=== PATIENT | male | born 1960 | race Caucasian/White ===

== ENCOUNTER → 2019-03-08 07:28 | Outpatient (CLI) | payer OTHER, SELFPAY ==
--- NOTE | 2019-03-08 | DI.US.S_ITS ---
PROCEDURE: US CAROTID DOPPLER BI INDICATIONS: PERIPHERAL VASCULAR DISEASE, CEREBRAL INFARCTION TECHNIQUE: Color and pulse Doppler interrogation was performed of both carotid systems, with image documentation and velocity measurements. COMPARISON: [facility], , CAROTID ARTERY DOPPLER BILAT, 09/19/2014, 8:10. FINDINGS: Stenosis calculations are based on SRU (Society of Radiologists in Ultrasound) criteria. Right side: Brachial blood pressure: 200/90 mm Hg. Common carotid artery peak systolic velocity: 49 cm/sec. Internal carotid artery peak systolic velocity 206 cm/sec. Internal carotid artery end diastolic velocity: 43 cm/sec. External carotid artery peak systolic velocity: 262 cm/sec. ICA/CCA peak systolic ratio: 4.2. Brady scale imaging description: Extensive plaque at the bifurcation Percent internal carotid artery stenosis: 50-69%. Vertebral artery: Flow direction is antegrade. Left side: Brachial blood pressure: 180/80 mm Hg. Common carotid artery peak systolic velocity: 62 cm/sec. Internal carotid artery peak systolic velocity: 117 cm/sec. Internal carotid artery end diastolic velocity: 38 cm/sec. External carotid artery peak systolic velocity: 102 cm/sec. ICA/CCA peak systolic ratio: 1.9. Brady scale imaging description: Diffuse plaque in the bifurcation Percent internal carotid artery stenosis: Less than 50%. Vertebral artery: Flow direction is antegrade. IMPRESSION: Right 50-69% ICA stenosis. This has progressed since prior study dated 09/19/14. Less than 50% left ICA stenosis. Hypertension at the time of examination. Recommend clinical followup and management. Dictated by: Gaudencio Mcmullen M.D. on 03/08/2019 at 11:28 Approved by: Gaudencio Mcmullen M.D. on 03/08/2019 at 11:31
--- NOTE | 2019-03-08 | DI.US.S_ITS ---
PROCEDURE: US ARTERIAL DUPLEX LE BI INDICATIONS: PERIPHERAL VASCULAR DISEASE TECHNIQUE: Color and pulse Doppler interrogation was performed of both lower extremity arterial systems, with image documentation. COMPARISON: None. FINDINGS: Right lower extremity: Common femoral artery: 192 cm/sec, with monophasic flow. Deep femoral artery: 454 cm/sec, with monophasic flow. Proximal superficial femoral artery: 310 cm/sec, with biphasic flow. Mid superficial femoral artery: 226 cm/sec, with biphasic flow. Distal superficial femoral artery: 159 cm/sec, with monophasic flow. Popliteal artery: 41 cm/sec, with monophasic flow. Posterior tibial artery: 29 cm/sec, with monophasic flow. Anterior tibial artery/dorsalis pedis: 46 cm/sec, with monophasic flow. Brady-scale imaging description: Heavy scattered plaque. Left lower extremity: Common femoral artery: 232 cm/sec, with triphasic flow. Deep femoral artery: 407 cm/sec, with triphasic flow. Proximal superficial femoral artery: 123 cm/sec, with biphasic flow. Mid superficial femoral artery: 181 cm/sec, with biphasic flow. Distal superficial femoral artery: 73 cm/sec, with biphasic flow. Popliteal artery: 64 cm/sec, with biphasic flow. Posterior tibial artery: 40 cm/sec, with biphasic flow. Anterior tibial artery/dorsalis pedis: 48 cm/sec, with biphasic flow. Brady-scale imaging description: Heavy scattered plaque. IMPRESSION: 1. Elevated velocities within the common femoral arteries, left greater than right likely related to aortoiliac disease. 2. 20-49% stenosis of the proximal right superficial femoral artery. 3. Significant decrease in flow visualized within the distal right superficial femoral artery where a high-grade stenosis and/or occlusion cannot entirely be excluded. If indicated, CT or MR angiography could be performed for further evaluation. 4. Roughly 50% stenosis involving the left mid superficial femoral artery. Dictated by: Howard ROBERTO Interpreted: Lamine Enrique MD on 03/08/2019 at 10:38 Approved by: Lamine Enrique M.D. on 03/08/2019 at 14:33
== END ==
PROVIDERS: Family Provider Family Medicine; PCP Family Medicine; Visit Provider Family Medicine
DX: I73.9 Peripheral vascular disease, unspecified (principal); I63.9 Cerebral infarction, unspecified
CPT/HCPCS: 93880; 93925

== ENCOUNTER → 2019-04-15 14:46 | Outpatient (CLI) | payer OTHER, SELFPAY ==
--- NOTE | 2019-04-15 | DI.ECHO.S_ITS ---
[facility] +---------+ : : [address] [address] : : : : [id number] : : : : Phone: [phone]+ Echocardiogram Report + + :Name: CARMEL SETH Study Date: 04/15/2019 Height: 74 in : :[facility] Weight: 204 lb : : Gender: Male BSA: 2.2 m2 : :: 1960 Age: 58 yrs BP: 190/80 mmHg: :Reason For Study: Murmur : : Performed By: Angella Carson : :Referring: ANIL IVY : + + Interpretation Summary Left ventricular wall thickness is mildly increased. The left ventricular ejection fraction is normal. The right ventricle grossly appears normal in size with probable normal systolic function. The right ventricular systolic pressure is estimated to be at least 36 mmHg based on an estimated right atrial pressure of 3 mm Hg. The aortic valve is moderately calcified. There is mild to moderate aortic stenosis. The severity ratio is 0.44, max velocity of 2.9 m/s and mean gradient of 14mmHg. Previously te severity ratio was 0.6 with peak velocity of 2.67 m/s and mean gradient of 15 mmHg. The ascending aorta is at the upper limits of normal in size. -Overall these findings are similar to the prior echocardiogram on 09/14/2010 with slight progression of the aortic stenosis. Procedure: A two-dimensional transthoracic echocardiogram with color flow and Doppler was performed. The study quality was technically adequate. Comparison is made with the echocardiogram of 09-14-10. The patient was in normal sinus rhythm during the exam. Left Ventricle: The left ventricle is normal in size. Left ventricular wall thickness is mildly increased. The ejection fraction is estimated to be 60- 65%. The left ventricular ejection fraction is normal. There are no focal wall motion abnormalities. Diastolic parameters suggest a relaxation abnormality of the left ventricle, consistent with probable normal filling pressures. Right Ventricle: The right ventricle grossly appears normal in size with probable normal systolic function. Atria: The left atrium is moderately dilated. Right atrial size is normal. There is no Doppler evidence for an interatrial shunt. Mitral Valve: The mitral valve leaflets appear mildly thickened, but open well. There is moderate mitral annular calcification. There is trace mitral regurgitation. Aortic Valve: The aortic valve is trileaflet. The aortic valve is moderately calcified. The calculated aortic valve area is 1.5 cm2. The aortic valve area is 1.6 centimeters squared by planimetry. The peak aortic velocity is 2.9 m/sec. The peak aortic velocity on the previous exam was 2.7 m/sec. The aortic valve mean gradient is 11 mmHg. Severity ratio is 0.44.Previously te severity ratio was 0.6 with INDIGO of 2.1 cm2, peak velocity of 2.67 m/s and mean gradient of 15 mmHg. There is mild to moderate aortic stenosis. There is mild aortic regurgitation. Tricuspid Valve: The tricuspid valve is normal in structure and function. There is a trace or physiologic amount of tricuspid regurgitation. The right ventricular systolic pressure is estimated to be at least 36 mmHg based on an estimated right atrial pressure of 3 mm Hg. Pulmonic Valve: The pulmonic valve is not well seen, but is grossly normal. There is no pulmonic valvular regurgitation. Great Vessels: The aortic root is normal size. The ascending aorta is at the upper limits of normal in size. The aortic arch is at the upper limits of normal in size. The IVC is of normal diameter and collapses greater than 50% with a sniff. This suggests a low right atrial pressure of 3 mm Hg. Pericardium/ Pleura There is no pericardial effusion. There is no pleural effusion. MMode/2D Measurements & Calculations LVIDd: 5.2 cm LVOT diam: 2.2 cm LVIDs: 3.0 cm Ao root diam: 3.4 cm FS: 41.2 % Aortic Jxn: 2.9 cm EPSS: 0.78 cm asc Aorta Diam: 3.8 cm IVSd: 1.0 cm Ao Arch Diam (Prox Trans): 3.4 cm LVPWd: 1.0 cm LV padron. diameter/BSA (cm/m^2): 2.4 LV sys. diameter/BSA (cm/m^2): 1.4 LA dimension: 4.2 cm RA long axis: 4.9 cm LA A2 area: 25.9 cm2 RA area: 17.6 cm2 LA A4 area: 26.0 cm2 RA vol: 53.8 ml LA length (vol): 5.7 cm RA : 24.6 ml/m2 LA vol: 99.9 ml IVC diam: 2.0 cm LA vol index: 45.6 ml/m2 RVDd major: 5.6 cm RVD1 (basal): 4.0 cm RVD2 (mid): 3.3 cm INDIGO (plan): 1.6 cm2 Doppler Measurements & Calculations Ao V2 max: 290.6 cm/sec LVOT Max Dixon: 111.2 cm/sec Ao V2 mean: 139.6 cm/sec LV V1 max P.9 mmHg Ao max P.8 mmHg LV V1 VTI: 27.9 cm Ao mean P.1 mmHg INDIGO(I,D): 1.6 cm2 Ao V2 VTI: 63.0 cm INDIGO(V,D): 1.4 cm2 sev ratio: 0.44 INDIGO indexed to BSA (cm^2/m^2): 0.74 MV E max dixon: 123.6 cm/sec TR max dixon: 292.0 cm/sec MV A max dixon: 157.0 cm/sec TR max P.1 mmHg MV E/A: 0.79 PA V2 max: 115.7 cm/sec Med Peak E' Dixon: 5.6 cm/sec PA V2 mean: 71.8 cm/sec E/E' med: 22.2 PA mean P.5 mmHg Lat Peak E' Dixon: 7.3 cm/sec PA Accel Time: 0.14 sec E/E' lat: 17.0 E/e' average: 19.6 MV dec time: 0.22 sec MV P1/2t: 66.4 msec MV P1/2t max dixon: 123.7 cm/sec SV(LVOT): 102.7 ml MVA(P1/2t): 3.3 cm2 Electronically signed by: Seth Golden M.D. on Reading Physician:04/16/2019 10:04 AM
== END ==
PROVIDERS: PCP Family Medicine; Visit Provider Family Medicine
DX: I35.2 Nonrheumatic aortic (valve) stenosis with insufficiency (principal); R01.1 Cardiac murmur, unspecified
CPT/HCPCS: 93306

== ENCOUNTER → 2019-04-19 11:30 | Outpatient (CLI) | payer OTHER, SELFPAY ==
--- NOTE | 2019-04-19 | DI.RAD.S_ITS ---
PROCEDURE: XR CHEST 2V INDICATIONS: AFEBRILE TECHNIQUE: 2 views of the chest were acquired. COMPARISON: Merged With [facility], , CHEST 2 VIEW, 08/13/2015, 11:02. FINDINGS: Surgical changes and devices: None. Lungs and pleura: Lungs are clear. No pleural effusions or pneumothorax. Mediastinum: Mediastinal contours are normal. Heart size is normal. Bones and chest wall: No suspicious bony abnormalities. Soft tissues appear unremarkable. IMPRESSION: No acute cardiopulmonary pathology. Dictated by: Roshan Thapa M.D. on 04/19/2019 at 12:06 Approved by: Roshan Thapa M.D. on 04/19/2019 at 12:07
== END ==
PROVIDERS: PCP Family Medicine; Visit Provider Family Medicine
DX: R06.00 Dyspnea, unspecified (principal); F17.200 Nicotine dependence, unspecified, uncomplicated
CPT/HCPCS: 71046

== ENCOUNTER 2019-05-17 11:55 | Day surgery (SDC) | payer OTHER, SELFPAY ==
--- NOTE | 2019-05-17 | PATH_ITS ---
[facility] Accession Number: [id number] . 01 Material submitted: . colon - POLYP ASCENDING COLON X2 . 01 Clinical history: . ONE 6-8MM, ONE 4-6MM . 02 Diagnosis: Polyp Ascending Colon x2: Portions of tubular adenoma x2. MRV 05/20/2019 1059 Local . 02 Electronically signed: . Margret Carlton MD, Pathologist NPI- [id number] . 01 Gross description: . POLYP ASCENDING COLON X2: Received in formalin are 3 fragment(s) of roach, soft tissue measuring 0.3 x 0.3 x 0.3 cm to 0.2 x 0.1 x 0.1 cm submitted entirely in 1 cassette(s) /QBJ 05/17/2019 2241 Local . 02 Pathologist provided ICD-10: K63.5 . 02 CPT . 457835 Performed at: 01 [facility] [address], [place], [place] [id number] MD Grayson Haque MD Phone: [phone] Performed at: 02 [facility] [address] [place], [place] [id number] MD Salena Duncan MD Phone: [phone]
--- NOTE | 2019-05-17 07:36 | P.HP_ITS ---
History of Present Illness History of Present Illness Date Patient Seen: 05/17/19 Time Patient Seen: 12:45 Chief complaint: [id number] SCREENING COLONOSCOPY Narrative: 58 Years Old Male comes in today for consideration of a screening colonoscopy. He has had one previous lifetime colonsocopy in the [facility] at age 19. Was having GI issues at that time, cannot really remember the exact indication and is not sure of the results. There have been no lower GI symptoms suggesting disease such as change in bowel habits, bleeding, abdominal pain or anemia. There's been no family history of colon cancer or colon polyps. Overall health issues have been stable, including no major cardiac events for at least 6 weeks. He does have significant whitecoat hypertension and is always very high in the clinic. During his pre-operative exam on 03/27/19 he was noted to have a systolic murmur, echo on 04/16/19 revealed mild to moderate aortic stenosis with a normal ejection fraction. Current Medications (verified): 1) Metformin Hcl 1000 Mg Oral Tablet (Metformin Hcl) .... Take one tablet in the morning and one tablet in the evening 2) Freestyle Lite Test in Vitro Strip (Glucose Blood) .... use to test blood sugar once daily ELL.9 3) Freestyle [place] Lite W/device Kit (Blood Glucose Monitoring Suppl) .... use once per day to test glucose for DM E11.9 4) Metoprolol Succinate Er 100 Mg Oral Tablet Extended Release 24 Hour (Metoprolol Succinate) .... twice daily, for blood pressure control 5) Amlodipine Besylate 5 Mg Oral Tablet (Amlodipine Besylate) .... take one tablet daily for control of blood pressure 6) Lisinopril-Hydrochlorothiazide 20-25 Mg Oral Tablet (Lisinopril- Hydrochlorothiazide) .... Take one by mouth twice a day 7) Pravastatin Sodium 80 Mg Oral Tablet (Pravastatin Sodium) .... Take 1 tablet by mouth once a day at bedtime, for cholesterol control. 8) Clonazepam 0.5 Mg Oral Tablet (Clonazepam) .... Take 1 tablet by mouth once daily, for anxiety. 9) Alprazolam 0.5 Mg Oral Tablet (Alprazolam) .... Take one tablet every 8 hours as needed for anxiety. 10) Omeprazole 20 Mg Oral Capsule Delayed Release (Omeprazole) .... Take one by mouth every day 11) Cialis 10 Mg Oral Tablet (Tadalafil) .... take one tablet by mouth as needed before sexual activity 12) Aspirin 81 Mg Oral Tablet (Aspirin) .... Take one daily to reduce cardiovascular risk 13) Multivitamins Oral Capsule (Multiple Vitamin) .... Take one by mouth every day Allergies (verified): No Known Drug Allergies Past Medical History: Aortic stenosis Elevated PSA DIABETES MELLITUS HYPERTENSION HYPERLIPIDEMIA KIDNEY DISEASE, CHRONIC NOS TOBACCO USER ESOPHAGEAL REFLUX CHEST PAIN Dizzy spells Back Pain Chest wall pain ANEMIA PAIN, ABDOMINAL, GROIN FATIGUE UNSPECIFIED PERIPHERAL VASCULAR DISEASE CAROTID OCCLUSIVE DISEASE, WITH CVA ANXIETY DISORDER, GENERALIZED TINNITUS ERECTILE DYSFUNCTION Past Surgical History: Dental surgery Meds Home Medications and Allergies Home Medications Medication Instructions Recorded Confirmed Type alprazolam 0.5 mg PO TID PRN 05/17/19 05/17/19 History amlodipine 5 mg PO DAILY 05/17/19 05/17/19 History aspirin [Aspir-81] 81 mg PO DAILY 05/17/19 05/17/19 History clonazepam 0.5 mg PO DAILY 05/17/19 05/17/19 History lisinopril-hydrochlorothiazide 1 tab PO DAILY 05/17/19 05/17/19 History metformin 1,000 mg PO BID 05/17/19 05/17/19 History metoprolol succinate 100 mg PO BID 05/17/19 05/17/19 History fniqiteelxex-yxfg-pjepf acid 1 tab PO DAILY 05/17/19 05/17/19 History [Multi Complete with Iron] omeprazole 20 mg PO DAILY 05/17/19 05/17/19 History pravastatin 80 mg PO DAILY 05/17/19 05/17/19 History tadalafil [Cialis] 10 mg PO DAILY PRN 05/17/19 05/17/19 History Allergies Allergy/AdvReac Type Severity Reaction Status Date / Time No Known Drug Allergies Allergy Verified 05/17/19 12:10 Review of Systems Review of Systems ROS Unobtainable: All systems reviewed & are unremarkable except as noted in HPI and below Exam Narrative Exam Narrative: General: Alert and oriented, appearing stated age and in no acute distress. Head: Head normocephalic/atraumatic. Neck: Neck soft and supple, no lymphadenopathy. Lungs: Clear to auscultation bilaterally, no wheezes, rhonchi or rales. Heart: Normal S1 and S2 with regular rate and rhythm, 3/5 systolic murmur. No rubs or gallops. Abdomen: Soft, non-tender, non-distended, no organomegaly. Positive bowel sounds.bowel sounds positive. Extremities: No clubbing, cyanosis, or edema. Neurologic: Cranial nerves II through XII grossly intact, no focal deficits. Skin: no concerning leisions. Psych: Alert and oriented x 3. Assessment & Plan Assessment & Plan narrative: Problem # 1: Screening for colon cancer Assessed as: New 1. Colonoscopy 2. Will coordinate with anesthesia for intraoperative sedation secondary to ASA class. The nature and character of the procedure as well as anticipated results were discussed. The possibility of not completing the procedure was also discussed. Possible complications including aspiration pneumonia, bleeding, perforation an d reaction to medications either for sedation or preparation and missed lesions were discussed. Questions were answered and proceeding to the colonoscopy was elected. Informed consent signed. I sincerely appreciate the referral allowing me to participate in this patient's care. Please contact me with any questions or concerns.'
[2019-05-17 12:18] VITALS: BP 218/98; PULSE 102; RESP 20; TEMP 36.4; O2SAT 99; BMI 25.7
[2019-05-17] MEDS: HYOSCYAMINE 0.125 MG TABLET PO (12:25)
[2019-05-17] MEDS: SODIUM CHLORIDE 0.9% 1,000 ML 200 ML IV (12:27)
[2019-05-17 12:48] VITALS: BP 196/86; PULSE 87; RESP 16; O2SAT 98
[2019-05-17] MEDS: METHYLENE BLUE 50 MG/10 ML VIAL 10 MG IV (14:32)
--- NOTE | 2019-05-17 14:43 | PM.OP.ENDO ---
Operative Date/Time/Diagnoses Date of procedure: 05/17/19 Time of procedure: 14:13 Pre-op diagnosis: 1. Screening for colon cancer 2. Medically complex, ASA class 3 Post-op diagnosis: other (Ascending polyp x2, 6-8 mm, removed with cold snare and cold biopsy) Procedure & Clinicians Study performed: 1. Colonoscopy Same procedure as scheduled: Yes Indications: 1. Screening for colon cancer 2. Medically complex, ASA class 3 Surgeon: Cari Toscano Procedure Notes SCOAP/Timeout: 14:13 Procedure in detail: ENDOSCOPIST: Cari Toscano MD Anesthesiologist: Javad Mcbride MD PROCEDURE: Colonoscopy with cold snare with methylene blue lift and cold biopsy INDICATIONS: 1. Screening for colon cancer 2. Medically complex, ASA class 3 MEDICATION: Levsin 0.125 mg sublingual, general anesthesia ASA CLASS: 3 CECAL WITHDRAWAL TIME: 15 minutes COMPLICATIONS: None. EXTENT OF PROCEDURE: Cecum. QUALITY OF PREP: Good with portions of liquid stool. PROCEDURE: Prior to insertion of the colonoscope, a digital rectal examination was accomplished with circumferential palpation of the distal rectal mucosa without significant findings being noted. The high-definition colonoscope was passed into the rectum in the usual fashion and advanced over to the cecum without difficulty. The ileocecal valve, appendiceal stoma, and medial wall all could be inspected and no abnormalities were seen. ASCENDING COLON: As the colonoscope was withdrawn, care was taken to expose and inspect the haustral folds and 2 polyps were seen. The 8 mm polyp was lifted with methylene blue and removed with cold snare, excellent hemostasis. The 6 mm polyp was removed with cold biopsy forceps. HEPATIC FLEXURE: Normal no polyps, diverticula or other abnormalities. TRANSVERSE COLON: Normal no polyps, diverticula or other abnormalities. DESCENDING COLON: Normal no polyps, diverticula or other abnormalities. SIGMOID COLON: Normal no polyps, diverticula or other abnormalities. RECTUM: Normal. J maneuver was produced. There was no significant perianal disease. The J maneuver was broken. The remainder of the rectum was inspected and there was minor external external hemorrhoid disease. The scope was withdrawn. IMPRESSION: 1. Ascending polyp x2, 6-8 mm, larger polyp lifted with methylene blue and removed with cold snare; smaller polyp removed cold biopsy forceps 2. External hemorrhoids, nonthrombosed PLAN: 1. Follow-up in clinic status post pathology results. The possibility of a missed lesion including a malignancy has been discussed with the patient previously. Potential alarm symptoms have been discussed and should be reported immediately. Scope withdrawal time: 15 Sedation minutes: 34 Findings: polyp Specimen(s): other (Ascending polyp x2) Complications: none Impression: As above Post-procedure Recommendations: Will call with biopsy results Follow up: weeks (2) Disposition: PACU
[2019-05-17 14:46] VITALS: BP 116/62; PULSE 73; RESP 17; TEMP 36.1; O2SAT 98
[2019-05-17 14:51] VITALS: BP 125/73; PULSE 76; RESP 10; O2SAT 98
[2019-05-17 14:56] VITALS: BP 151/76; PULSE 70; RESP 15; O2SAT 99
[2019-05-17 15:16] VITALS: BP 139/78; PULSE 77; RESP 16; TEMP 36.7; O2SAT 99
== END 2019-05-17 15:19 | disposition home or self-care (01) ==
PROVIDERS: PCP Family Medicine; Visit Provider Student in an Organized Health Care Education/Training Program
PROC: 0DJD8ZZ Inspection of Lower Intestinal Tract, Via Natural or Artificial Opening Endoscopic (ICD-10-PCS; CPT 45378; principal; 2019-05-17 13:00)
DX: Z12.11 Encounter for screening for malignant neoplasm of colon (principal); K64.4 Residual hemorrhoidal skin tags; D12.2 Benign neoplasm of ascending colon; F17.210 Nicotine dependence, cigarettes, uncomplicated; I73.9 Peripheral vascular disease, unspecified; E11.9 Type 2 diabetes mellitus without complications; Z79.84 Long term (current) use of oral hypoglycemic drugs; I10 Essential (primary) hypertension; E78.5 Hyperlipidemia, unspecified
CPT/HCPCS: 45385; 45381; 45380; J2250; J2704; J3010; Q9968